=== PATIENT | male | born 1950 | race Two or more races ===

== ENCOUNTER 2023-02-04 11:01 | Inpatient (IN) | payer OTHER ==
[~2023-02-04] VITALS: Ht 167.6 cm; Wt 92.1 kg
[2023-02-04] MEDS ORDERED: AVAPRO150 MG (11:31)
[2023-02-04] MEDS ORDERED: TAMS0.4C (11:32)
[2023-02-04] MEDS ORDERED: SULFASALAZINE500 M1 (11:32)
[2023-02-04] MEDS ORDERED: ADULT LOW DOSE81 M1 (11:32)
[2023-02-04] MEDS ORDERED: FOLIC ACID0.8 M1 (11:32)
[2023-02-04] MEDS ORDERED: ABATRACE CAPSU1 EACH (11:33)
[2023-02-04] MEDS ORDERED: PEPCID AC10 MG (11:33)
[2023-02-04] MEDS ORDERED: TOPROL XL25 M1 (11:33)
[2023-02-04] MEDS ORDERED: PHENAZOPYRIDIN100 MG (11:33)
[2023-02-04] MEDS ORDERED: BENTYL10 MG/1 ML (11:34)
[2023-02-04] MEDS ORDERED: PRILOSEC OTC20 MG (11:34)
--- NOTE | 2023-02-04 11:37 | NUR ---
PACIENTE MASCULINO ALERTA Y ORIENTADO X3, REFIERE NO PODER ORINAR, PACIENTE DE DR. SANTANA.
--- NOTE | 2023-02-04 12:34 | NUR ---
PACIENTE EVALUADO POR LA QUIEN ORDENA TRATAMIENTO MEDICO. RN PEARL REALIZA MUESTRAS BAJO MEDIDAS ASEPTICAS Y SE ADMINISTRAN MEDICAMENTOS ALFREDO ORDEN MEDICA. SE ESPERA POR CT IV PENDIENTE.
--- NOTE | 2023-02-04 15:59 | NUR ---
SE RECIBE PACIENTE DEL TURNO ANTERIOR EL MISMO SE ENCUENTRA ALERTA Y ORIETNADO X3. SE LE ORIENTA A PACIENTE SOBRE CONTINUIDAD DE TRATAMIENTO Y VERBALIZA ENTENDER. SE OBSERVA PACIENTE EN ABHIJIT CON BARANDAS ELEVADAS POR PRECAUCION A CAIDAS. SE OBSERVA PACIENTE CON 0.9%NSS BAJANDOA A 80ML/HR. SE MONITOREAN S/V SE OBSERVA PACIENTE CON 102.7. DRA DELACRUZ ORDENA VERBALMENTE ADMINSITRAR TYLENOL 1000MG PO. SE MANTIENE PACIENTE BAJO OBSERVACION POR CAMBIOS EN TRATAMIENTO MEDICO.
[2023-02-13] MEDS ORDERED: PROMETHAZINE W473 ML PO (10:37)
[2023-02-13] MEDS ORDERED: BENZONATATE200 M1 PO (15:56)
[2023-02-13] MEDS ORDERED: LORATADINE10 MG PO (15:56)
[2023-02-13] MEDS ORDERED: CLOTRIMAZOLE10 MG MM (15:57)
== END 2023-02-13 16:18 | disposition home or self-care (01) | DRG 728 ==
LOC: ER 11:01 → MEDI 21:19
PROVIDERS: ADMIT Internal Medicine; ATTEND Internal Medicine
PROC: BW21YZZ Computerized Tomography (CT Scan) of Abdomen and Pelvis using Other Contrast (ICD-10-PCS; principal; 2023-02-04)
PROC: BT4JZZZ Ultrasonography of Kidneys and Bladder (ICD-10-PCS; 2023-02-05)
PROC: 02HV33Z Insertion of Infusion Device into Superior Vena Cava, Percutaneous Approach (ICD-10-PCS; 2023-02-05)
PROC: BB24ZZZ Computerized Tomography (CT Scan) of Bilateral Lungs (ICD-10-PCS; 2023-02-10)
DX: N41.0 Acute prostatitis (principal); N17.8 Other acute kidney failure; N40.1 Benign prostatic hyperplasia with lower urinary tract symptoms; N18.9 Chronic kidney disease, unspecified; D69.6 Thrombocytopenia, unspecified